=== PATIENT | male | born 1990 | race Caucasian/White ===

== ENCOUNTER 2022-07-04 15:53 | Emergency (ER) | payer BC ==
[~2022-07-04] VITALS: Ht 182.9 cm; Wt 117.9 kg
[2022-07-04 15:58] VITALS: BP_SYST 144
[2022-07-04] MEDS ORDERED: IPRATROPIUM BROM 0.5 MG/2.5 ML VIAL.NEB (ATROVENT) INH ONE (16:15)
[2022-07-04] MEDS ORDERED: predniSONE 20 MG TABLET PO ONE (16:15)
[2022-07-04] MEDS ORDERED: ALBUTEROL SULFATE 0.083% 2.5 MG/3 ML VIAL.NEB INH ONE (16:15)
[2022-07-04] MEDS ORDERED: PRED20TA PO (16:53)
[2022-07-04 17:10] VITALS: BP_SYST 136
== END 2022-07-04 17:10 | disposition home or self-care (01) ==
LOC: SED 15:53
DX: J45.901 Unspecified asthma with (acute) exacerbation (principal); R06.00 Dyspnea, unspecified; R05.9 Cough, unspecified; Z79.899 Other long term (current) drug therapy
CPT/HCPCS: 71045; 94640; 94760; 99283; J7512; J7613